=== PATIENT | female | born 1995 | race Caucasian/White ===

== ENCOUNTER 2019-09-26 23:58 | Emergency (ER) | payer OTHER ==
--- NOTE | 2019-09-27 00:24 | PDOC ---
*Physical Exam - Vital Signs Last Vital Signs Temp Pulse Resp BP Pulse Ox 98.3 F 89 16 101/62 98 09/27/19 00:14 09/27/19 00:14 09/27/19 00:14 09/27/19 00:14 09/27/19 00:14 Medical Decision Making - Medical Decision Making 09/27/19 00:23 Patient seen by the advanced practice provider under my supervision. Ancillary testing reviewed as necessary. I agree with plan as outlined by the advanced practice provider. Discharge - Discharge Information Clinical Impression/Diagnosis: Gastritis Condition: Fair Disposition: HOME - Additional Discharge Information Prescriptions: Famotidine [Pepcid -] 40 mg PO DAILY #14 tablet - Follow up/Referral Referrals: Maria Lowe MD [Staff Physician] - Call tomorrow - Patient Discharge Instructions Patient Printed Discharge Instructions: Gastritis (Alternative Therapy) - Post Discharge Activity Work/Back to School Note: Back to Work
--- NOTE | 2019-09-27 00:24 | PDOC ---
History of Present Illness - General Chief Complaint: Pain Stated Complaint: ABD PAIN Time Seen by Provider: 09/27/19 00:22 History Source: Patient - History of Present Illness Initial Comments: 09/27/19 01:50 24-year-old female complaining of epigastric pain constant for the last 4 to 5 days. Patient reports nausea denies vomiting, fever.Denies urinary symptoms, fever, chills Past History - Medical History Allergies/Adverse Reactions: Allergies Allergy/AdvReac Type Severity Reaction Status Date / Time No Known Allergies Allergy Verified 09/27/19 00:22 Home Medications: Ambulatory Orders Acetaminophen [Tylenol -] 650 mg PO Q6H PRN 08/11/14 Nitrofurantoin Monohyd/M-Cryst [Macrobid -] 100 mg PO BID #20 capsule 08/11/14 Famotidine [Pepcid -] 40 mg PO DAILY #14 tablet 09/27/19 - Reproductive History Is Patient Now?: No - Psycho-Social/Smoking History Smoking History: Never smoked Have you smoked in the past 12 months: No Number of Cigarettes Smoked Daily: 1 Information on smoking cessation initiated: No 'Breaking Loose' booklet given: 08/11/14 - Substance Abuse Hx (Audit-C & DAST Scrn) How often the patient has a drink containing alcohol: Never Score: In Men: 4 or > Positive; In Women: 3 or > Positive: 0 Screen Result (Pos requires Nsg. Audit-10AR): Negative In the last yr the pt used illegal drug/Rx for NonMed reason: No Score: Yes response is considered Positive: 0 Screen Result (Positive result requires Nsg. DAST-10): Negative Review of Systems - Review of Systems Able to Perform ROS?: Yes Is the patient limited Japanese proficient: No *Physical Exam - Vital Signs Last Vital Signs Temp Pulse Resp BP Pulse Ox 98.3 F 89 16 101/62 98 09/27/19 00:14 09/27/19 00:14 09/27/19 00:14 09/27/19 00:14 09/27/19 00:14 - Physical Exam General Appearance: Yes: Appropriately Dressed Cardiovascular: positive: Regular Rhythm, Regular Rate Gastrointestinal/Abdominal: positive: Normal Bowel Sounds, Soft. negative: Tender Musculoskeletal: positive: Normal Inspection. negative: CVA Tenderness Extremity: positive: Normal Capillary Refill Integumentary: positive: Normal Color, Dry, Warm Neurologic: positive: Fully Oriented, Alert, Normal Mood/Affect, Normal Response ED Progress Note - Progress Note Progress Note: 09/27/19 02:01 A: gastritis P: pepcid maalox saminafran Medical Decision Making - Medical Decision Making 09/27/19 01:58 patient feels better. will d/c home. GI referral given, strict return precautions reviewed with patient. Discharge - Discharge Information Problems reviewed: Yes Clinical Impression/Diagnosis: Gastritis Qualifiers: Gastritis type: unspecified gastritis Chronicity: acute Gastritis bleeding: without bleeding Qualified Code(s): K29.00 - Acute gastritis without bleeding Condition: Fair Disposition: HOME - Additional Discharge Information Prescriptions: Famotidine [Pepcid -] 40 mg PO DAILY #14 tablet - Follow up/Referral Referrals: Maria Lowe MD [Staff Physician] - Call tomorrow - Patient Discharge Instructions Patient Printed Discharge Instructions: Gastritis (Alternative Therapy) - Post Discharge Activity Work/Back to School Note: Back to Work
[2019-09-27 00:26] VITALS: BMI 19.4
[2019-09-27] MEDS ORDERED: MAG HYDROX/AL HYDROX/SIMETH 30 ML UNIT-DOSE CUP PO ONE (01:07)
[2019-09-27] MEDS ORDERED: ONDANSETRON *ODT* 4 MG TABLET SL ONE (01:07)
[2019-09-27] MEDS ORDERED: FAMOTIDINE 20 MG TABLET PO ONE (01:07)
[2019-09-27] MEDS ORDERED: ONDANSETRON *ODT* 4 MG TABLET ONE (01:15)
[2019-09-27] MEDS ORDERED: FAMOTIDINE 20 MG TABLET ONE (01:15)
[2019-09-27] MEDS ORDERED: MAG HYDROX/AL HYDROX/SIMETH 30 ML UNIT-DOSE CUP ONE (01:16)
[2019-09-27 01:25] LABS: PH,URINE 5.5 (5.0-8.0); URINE APPEARANCE CLEAR; URINE BILIRUBIN NEGATIVE (NEGATIVE); URINE COLOR YELLOW; URINE GLUCOSE (UA) NEGATIVE (NEGATIVE); URINE KETONE TRACE (NEGATIVE); URINE LEUK ESTERASE NEGATIVE (NEGATIVE); URINE NITRITE NEGATIVE (NEGATIVE); URINE PROTEIN NEGATIVE (NEGATIVE)
[2019-09-27 01:28] LABS: HCG,QUALITATIVE URINE Negative
[2019-09-27 01:55] VITALS: BP 117/54; PULSE 79; TEMP 98.7
== END 2019-09-27 02:09 | disposition home or self-care (01) ==
LOC: JER 23:58
DX: K29.00 Acute gastritis without bleeding (principal)
CPT/HCPCS: 81003; 84703; 99284-25; Q0162

== ENCOUNTER 2020-10-25 10:50 | Emergency (ER) | payer OTHER ==
[2020-10-25 11:29] VITALS: TEMP 98.6; BMI 22.3
[2020-10-25 12:52] LABS: BASO % 0.6 % (0-2.0); EOS % 3.6 % (0-4.5); HEMOGLOBIN 14.9 GM/dL (10.7-15.3); LYMPH % 23.4 % (8-40); MCH 31.4 pg (25.7-33.7); MCHC 34.6 g/dl (32.0-36.0); MEAN CELL VOLUME 90.9 fl (80-96); MEAN PLT VOLUME 8.7 fl (7.5-11.1); MONO % 5.8 % (3.8-10.2); NEUT % 66.6 % (42.8-82.8); PLATELET COUNT 191 10^3/uL (134-434); RBC 4.74 M/mm3 (3.60-5.2); RDW 13.6 % (11.6-15.6); WHITE BLOOD COUNT 6.5 K/mm3 (4.0-10.0)
[2020-10-25 13:12] LABS: CALCIUM 8.7 mg/dL (8.5-10.1)
[2020-10-25 13:13] LABS: ALBUMIN 4.3 g/dl (3.4-5.0); BLOOD UREA NITROGEN 8.7 mg/dL (7-18)
[2020-10-25 13:16] LABS: CREATININE 0.6 mg/dL (0.55-1.3)
[2020-10-25 13:17] LABS: BILIRUBIN,TOTAL 0.9 mg/dL (0.2-1)
[2020-10-25 13:18] LABS: TOT PROT 7.9 g/dl (6.4-8.2)
[2020-10-25 14:08] LABS: URINE APPEARANCE CLEAR; URINE BILIRUBIN NEGATIVE (NEGATIVE); URINE COLOR YELLOW; URINE GLUCOSE (UA) NEGATIVE (NEGATIVE); URINE KETONE NEGATIVE (NEGATIVE); URINE LEUK ESTERASE NEGATIVE (NEGATIVE); URINE NITRITE NEGATIVE (NEGATIVE); URINE PROTEIN NEGATIVE (NEGATIVE); URINE UROBILINOGEN 0.2 mg/dL (0.2-1.0)
[2020-10-25 14:41] VITALS: BP 113/74; PULSE 82
== END 2020-10-25 15:12 | disposition home or self-care (01) ==
LOC: JER 10:50
DX: O20.8 Other hemorrhage in early pregnancy (principal)
CPT/HCPCS: 36415; 76817-TC; 80053; 81003; 84702; 85025; 86850; 86900; 86901; 87086; 99284-25

== ENCOUNTER 2020-10-30 15:20 | Emergency (ER) | payer OTHER ==
[2020-10-30 15:36] VITALS: BMI 23.1
[2020-10-30 19:41] VITALS: BP 104/62; PULSE 79; TEMP 99.1
== END 2020-10-30 19:55 | disposition home or self-care (01) ==
LOC: JER 15:20
DX: O00.01 Abdominal pregnancy with intrauterine pregnancy (principal); O26.851 Spotting complicating pregnancy, first trimester; Z3A.01 Less than 8 weeks gestation of pregnancy
CPT/HCPCS: 36415; 76817-TC; 84702; 99284-25